=== PATIENT | male | born 1985 | race Caucasian/White ===

== ENCOUNTER 2025-06-23 17:35 | Emergency (ER) | payer SELFPAY ==
[2025-06-23] MEDS ORDERED: predniSONE 20 MG TAB ONE (20:19)
== END 2025-06-23 22:32 | disposition home or self-care (01) ==
LOC: CSHERS 17:35
DX: J18.9 Pneumonia, unspecified organism (principal); F17.290 Nicotine dependence, other tobacco product, uncomplicated; F17.210 Nicotine dependence, cigarettes, uncomplicated
CPT/HCPCS: 71046; 87428; J7512